=== PATIENT | female | born 1965 | race American Indian/Alaskan Native ===

== ENCOUNTER 2021-02-24 23:54 | Emergency (ER) | payer SELFPAY ==
[2021-02-25] MEDS ORDERED: ASPIRIN 325 MG TAB PO ONE (00:10)
--- NOTE | 2021-02-25 00:50 | XRay Report ---
CHEST PA AND LATERAL VIEWS INDICATION: CHEST PAIN. COMPARISON: None. FINDINGS: Support devices: None. Heart: Within normal limits. Lungs/Pleura: There are somewhat diffuse bilateral airspace opacities with sparing of the apices. No effusion or pneumothorax. IMPRESSION: 1. Nonspecific mild diffuse bilateral pulmonary opacities. Signer Name: Jeremiah Espinoza MD Signed: 02/25/2021 12:45 AM Workstation Name: [id number]
[2021-02-25 01:05] LABS: Basophils # (Auto) 0.1 K/mm3 (0.0-0.1); Basophils % (Auto) 0.4 % (0.0-1.8); Eosinophils # (Auto) 0.1 K/mm3 (0.0-0.4); Eosinophils % (Auto) 0.6 % (0.0-4.3); Hematocrit 49.6 % (30.3-42.9); Hemoglobin 16.3 gm/dl (10.1-14.3); Lymphocytes # (Auto) 1.9 K/mm3 (1.2-5.4); Lymphocytes % (Auto) 14.3 % (13.4-35.0); Mean Corpuscular HGB Conc 33 % (30-34); Mean Corpuscular Volume 99 fl (79-97); Monocytes # (Auto) 1.3 K/mm3 (0.0-0.8); Monocytes % (Auto) 9.7 % (0.0-7.3); Red Cell Distribution Width 13.7 % (13.2-15.2)
[2021-02-25 01:14] LABS: Platelet Count 138 K/mm3 (140-440)
[2021-02-25 01:30] LABS: Alanine Aminotransferase 13 units/L (7-56); Albumin 4.5 g/dL (3.9-5); BUN/Creatinine Ratio 10; Blood Urea Nitrogen 8 mg/dL (7-17); Calcium 9.2 mg/dL (8.4-10.2); Hemolysis Index 11
[2021-02-25] MEDS ORDERED: ASPIRIN 81 MG TAB CHEW PO ONE (10:05)
--- NOTE | 2021-02-25 10:16 | Emergency Department Report ---
ED Chest Pain HPI - General Chief Complaint: Chest Pain Stated Complaint: CHEST PAIN LEIGH ANN Time Seen by Provider: 02/25/21 09:58 Source: patient, EMS Mode of arrival: Wheelchair Limitations: No Limitations - History of Present Illness Initial Comments: This is a 55-year-old -[place] female who presents to the emergency department with a complaint of a 4 to 5-day history of some intermittent left- sided chest pains and intermittent shortness of breath. The patient, along with her family, travel down to [place] for vacation and stayed in an air B&B. She says that there were stairs there and one of the days she felt shortness of breath while climbing the stairs and developed this left-sided chest pain. It went away while she was on vacation but the symptoms returned again last night when she was climbing the stairs to get to her apartment. She denies any fever, lower extremity swelling, nausea, vomiting, back pain or diaphoresis. At this time the chest discomfort is 4 out of 10 in intensity. No alleviating factors. She has not taken anything for symptoms prior to presentation. She denies any tobacco or illicit drug use. No family history of early heart attack in her nuclear family. She has a past medical history of hypertension. - Related Data Previous Rx's Medication Instructions Recorded Last Taken Type Furosemide [Lasix] 20 mg PO QDAY #2 tablet 02/25/21 Unknown Rx Allergies Allergy/AdvReac Type Severity Reaction Status Date / Time No Known Allergies Allergy Unverified 02/25/21 00:07 Heart Score - HEART Score History: Slightly suspicious EKG: Non-specific Age: 45-65 Risk factors: 1-2 risk factors Troponin: < normal limit HEART Score: 3 - EKG Read Time Time EKG Completed: 00:19 EKG Read Time: 00:23 - Critical Actions Critical Actions: 0-3 pts:0.9-1.7%risk of adverse cardiac event.Candidate for discharge ED Review of Systems ROS: Stated complaint: CHEST PAIN LEIGH ANN Other details as noted in HPI Comment: All other systems reviewed and negative Constitutional: denies: chills, fever Eyes: denies: eye pain, vision change ENT: denies: ear pain, throat pain Respiratory: SOB with exertion. denies: cough Cardiovascular: chest pain. denies: edema Gastrointestinal: denies: abdominal pain, vomiting Genitourinary: denies: dysuria, discharge Musculoskeletal: denies: back pain, arthralgia Skin: denies: rash, lesions Neurological: denies: headache, weakness ED Past Medical Hx - Past Medical History Previous Medical History?: Yes Hx Hypertension: Yes - Surgical History Past Surgical History?: No - Medications Home Medications: Home Medications Medication Instructions Recorded Confirmed Last Taken Type Furosemide [Lasix] 20 mg PO QDAY #2 tablet 02/25/21 Unknown Rx ED Physical Exam - General Limitations: No Limitations - Other Other exam information: GENERAL: The patient is well-developed well-nourished. HENT: Normocephalic. Atraumatic. Patient has moist mucous membranes. EYES: Extraocular motions are intact. NECK: Supple. Trachea is midline. CHEST/LUNGS: Slightly coarse breath sounds. No tachypnea or accessory muscle use. There is no respiratory distress noted. HEART/CARDIOVASCULAR: Regular. There is no tachycardia. ABDOMEN: Abdomen is soft, nontender. Patient has normal bowel sounds. There is no abdominal distention. SKIN: Skin is warm and dry. NEURO: The patient is awake, alert, and oriented. The patient is cooperative. The patient has no focal neurologic deficits. Normal speech. MUSCULOSKELETAL: There is no tenderness or deformity. There is no limitation range of motion. ED Course Vital Signs 02/25/21 02/25/21 02/25/21 00:07 09:30 09:46 Temperature 98.0 F Pulse Rate 102 H 75 77 Respiratory 17 19 16 Rate Blood Pressure 159/98 143/92 136/91 Blood Pressure [Left] O2 Sat by Pulse 93 97 95 Oximetry 02/25/21 02/25/21 02/25/21 10:00 10:15 10:16 Temperature Pulse Rate 96 H 84 Respiratory 15 18 24 Rate Blood Pressure 136/91 152/113 Blood Pressure [Left] O2 Sat by Pulse 96 94 97 Oximetry 02/25/21 02/25/21 02/25/21 10:30 10:46 11:00 Temperature Pulse Rate 75 88 89 Respiratory 16 21 22 Rate Blood Pressure 152/113 132/86 132/86 Blood Pressure [Left] O2 Sat by Pulse 94 97 98 Oximetry 02/25/21 02/25/21 02/25/21 11:15 11:30 11:46 Temperature Pulse Rate 78 81 68 Respiratory 18 19 16 Rate Blood Pressure 146/106 146/106 138/96 Blood Pressure [Left] O2 Sat by Pulse 99 97 96 Oximetry 02/25/21 02/25/21 02/25/21 12:00 12:26 12:46 Temperature Pulse Rate 86 84 88 Respiratory 22 21 17 Rate Blood Pressure 146/106 159/96 159/96 Blood Pressure [Left] O2 Sat by Pulse 98 81 L 100 Oximetry 02/25/21 02/25/21 02/25/21 13:00 13:28 13:30 Temperature Pulse Rate 87 96 H 102 H Respiratory 21 20 19 Rate Blood Pressure 139/95 151/100 151/100 Blood Pressure [Left] O2 Sat by Pulse 100 100 100 Oximetry 02/25/21 02/25/21 02/25/21 13:46 14:30 14:46 Temperature Pulse Rate 93 H 85 89 Respiratory 18 21 19 Rate Blood Pressure 151/100 153/103 153/103 Blood Pressure [Left] O2 Sat by Pulse 100 97 96 Oximetry 02/25/21 15:00 Temperature Pulse Rate 88 Respiratory 18 Rate Blood Pressure Blood Pressure 150/100 [Left] O2 Sat by Pulse 100 Oximetry SRINIVAS score - Srinivas Score Age > 65: (0) No Aspirin use within the Past 7 Days: (0) No 3 or more CAD Risk Factors: (0) No 2 or more Angina events in past 24 hrs: (1) Yes Known CAD with more than 50% Stenosis: (0) No Elevated Cardiac Markers: (0) No ST Deviation Greater than 0.5mm: (1) Yes SRINIVAS Score: 2 ED Medical Decision Making - Lab Data Result diagrams: 02/25/21 00:31 02/25/21 00:31 Lab Results 02/25/21 02/25/21 02/25/21 Range/Units 00:31 00:31 04:17 WBC 13.3 H (4.5-11.0) K/mm3 RBC 5.00 (3.65-5.03) M/mm3 Hgb 16.3 H (10.1-14.3) gm/dl Hct 49.6 H (30.3-42.9) % MCV 99 H (79-97) fl MCH 33 H (28-32) pg MCHC 33 (30-34) % RDW 13.7 (13.2-15.2) % Plt Count 138 L (140-440) K/mm3 Lymph % (Auto) 14.3 (13.4-35.0) % [place] % (Auto) 9.7 H (0.0-7.3) % Eos % (Auto) 0.6 (0.0-4.3) % Baso % (Auto) 0.4 (0.0-1.8) % Lymph # (Auto) 1.9 (1.2-5.4) K/mm3 [place] # (Auto) 1.3 H (0.0-0.8) K/mm3 Eos # (Auto) 0.1 (0.0-0.4) K/mm3 Baso # (Auto) 0.1 (0.0-0.1) K/mm3 Seg Neutrophils % 75.0 H (40.0-70.0) % Seg Neutrophils # 10.0 H (1.8-7.7) K/mm3 D-Dimer (0-234) ng/mlDDU Sodium 140 (137-145) mmol/L Potassium 3.5 L (3.6-5.0) mmol/L Chloride 101.2 (98-107) mmol/L Carbon Dioxide 24 (22-30) mmol/L Anion Gap 18 mmol/L BUN 8 (7-17) mg/dL Creatinine 0.8 (0.6-1.2) mg/dL Estimated GFR > 60 ml/min BUN/Creatinine Ratio 10 % Glucose 96 (65-100) mg/dL Calcium 9.2 (8.4-10.2) mg/dL Total Bilirubin 0.60 (0.1-1.2) mg/dL AST 16 (5-40) units/L ALT 13 (7-56) units/L Alkaline Phosphatase 112 (35-129) units/L Troponin T < 0.010 < 0.010 (0.00-0.029) ng/mL NT-Pro-B Natriuret Pep (0-900) pg/mL Total Protein 7.9 (6.3-8.2) g/dL Albumin 4.5 (3.9-5) g/dL Albumin/Globulin Ratio 1.3 % 02/25/21 02/25/21 02/25/21 Range/Units 06:51 10:41 10:41 WBC (4.5-11.0) K/mm3 RBC (3.65-5.03) M/mm3 Hgb (10.1-14.3) gm/dl Hct (30.3-42.9) % MCV (79-97) fl MCH (28-32) pg MCHC (30-34) % RDW (13.2-15.2) % Plt Count (140-440) K/mm3 Lymph % (Auto) (13.4-35.0) % [place] % (Auto) (0.0-7.3) % Eos % (Auto) (0.0-4.3) % Baso % (Auto) (0.0-1.8) % Lymph # (Auto) (1.2-5.4) K/mm3 [place] # (Auto) (0.0-0.8) K/mm3 Eos # (Auto) (0.0-0.4) K/mm3 Baso # (Auto) (0.0-0.1) K/mm3 Seg Neutrophils % (40.0-70.0) % Seg Neutrophils # (1.8-7.7) K/mm3 D-Dimer 1320.30 H (0-234) ng/mlDDU Sodium (137-145) mmol/L Potassium (3.6-5.0) mmol/L Chloride (98-107) mmol/L Carbon Dioxide (22-30) mmol/L Anion Gap mmol/L BUN (7-17) mg/dL Creatinine (0.6-1.2) mg/dL Estimated GFR ml/min BUN/Creatinine Ratio % Glucose (65-100) mg/dL Calcium (8.4-10.2) mg/dL Total Bilirubin (0.1-1.2) mg/dL AST (5-40) units/L ALT (7-56) units/L Alkaline Phosphatase (35-129) units/L Troponin T < 0.010 (0.00-0.029) ng/mL NT-Pro-B Natriuret Pep 1452 H (0-900) pg/mL Total Protein (6.3-8.2) g/dL Albumin (3.9-5) g/dL Albumin/Globulin Ratio % - EKG Data -: EKG Interpreted by Pa EKG shows normal: sinus rhythm, axis, intervals, QRS complexes (LVH), ST-T waves (Early repolarization to the anteroseptal leads) Rate: tachycardia (101 bpm) - EKG Data When compared to previous EKG there are: previous EKG unavailable Interpretation: other (Sinus rhythm at 101 bpm, normal axis, normal intervals, LVH, early repolarization. No ST elevation PR) - Radiology Data Radiology results: report reviewed, image reviewed interpreted by me: Chest x-ray shows some pulmonary vascular congestion. No obvious pneumonia. No pneumothorax. CTA CHEST WITH CONTRAST INDICATION : Chest pain, elevated d-dimer. TECHNIQUE: Axial imaging performed through the chest, with contrast bolus timing set to maximize opacification of the pulmonary arteries. Sagittal and coronal reformatted images. 3-plane MIP reformatted images were obtained. All CT scans at this location are performed using CT dose reduction for ALARA by means of automated exposure control. 100 mL of intravenous contrast administered. COMPARISON: None FINDINGS: Bolus: Contrast bolus timing is adequate. PTE: No filling defect is present to suggest PTE. Mediastinum: Mild cardiomegaly is evident. No pericardial abnormality. The remaining mediastinal contents are unremarkable. No pathologic mediastinal adenopathy. Lungs: Mild congestive changes are identified in the lower lung zones. Trace right pleural effusion. Bibasilar opacities are identified, right greater than left, which are most consistent with atelectatic changes. No pneumothorax. Bones: Degenerative changes in the spine with nothing acute. Upper abdomen: Limited imaging of the upper abdomen shows nothing acute. IMPRESSION: No evidence for pulmonary embolus. Findings consistent with mild CHF. - Medical Decision Making This patient presents to the emergency department with a complaint of some intermittent episodes of left-sided chest pains and shortness of breath with exertion. Initially, at the time of my examination, the patient had mild to moderate chest discomfort but no current shortness of breath. EKG did not have any morphology consistent with ST elevation myocardial infarction. Chest x-ray showed some pulmonary vascular congestion. The patient had blood work prior to my shift starting that looked mostly unremarkable including CBC, metabolic panel and negative troponins x3. However, given the patient's complaint of the chest discomfort, recent travel to [place], and shortness of breath with exertion, I wanted to evaluate her for pulmonary embolism and CHF. The BNP came back at about 1450, and the D-dimer level came back at greater than 1300. A CT angiography of the chest was completed that did not show any pu lmonary embolism and showed evidence of mild CHF. The patient was given a dose of Lasix for diuresis. The potassium was 3.5 so she was given a dose of potassium chloride so that she can have a few doses of Lasix without causing severe hypokalemia. The patient is low on the heart and SRINIVAS score. Just prior to discharge the patient says that she is chest pain-free. She was seen ambulatory around the emergency department without any oxygen and remained at 97% while ambulating, and at 100% on room air while at rest. For all these reasons the patient appears safe for discharge home at this time. Her contact information has been sent over to the [facility] [place], and someone from their office should be contacting her shortly for close outpatient follow-up as per our [facility] low risk chest pain protocol. She will return to the emergency department with any worsening of her symptoms or with any acute distress. Critical Care Time: No Critical care attestation.: If time is entered above; I have spent that time in minutes in the direct care of this critically ill patient, excluding procedure time. ED Disposition Clinical Impression: CHF (congestive heart failure) Qualifiers: Heart failure type: unspecified Heart failure chronicity: acute Qualified Code(s): I50.9 - Heart failure, unspecified Chest pain Qualifiers: Chest pain type: unspecified Qualified Code(s): R07.9 - Chest pain, unspecified Disposition: DC-01 TO HOME OR SELFCARE Is pt being admited?: No Condition: Stable Instructions: Nonspecific Chest Pain, Adult, Heart Failure, Diagnosis Additional Instructions: Please follow-up with a primary care physician in the next few days. I am sending your contact information over to the [facility] [place], and someone from their office should be contacting you shortly for close outpatient follow-up. Just in case, I am giving you a referral for one of their aeronautical products sales engineer, Dr. Buck. Return to the emergency department with any worsening of your symptoms, new or concerning symptoms not addressed during this current emergency department visit, or with any acute distress. Prescriptions: Furosemide [Lasix] 20 mg PO QDAY #2 tablet Referrals: PRIMARY CAREMD [Primary Care Provider] - 3-5 Days KAREN BUCK MD [Staff Physician] - 3-5 Days Time of Disposition: 15:22
[2021-02-25] MEDS ORDERED: FUROSEMIDE 20 MG/2 ML INJ IV ONE (12:18)
--- NOTE | 2021-02-25 13:59 | Cat Scan Report ---
CTA CHEST WITH CONTRAST INDICATION : Chest pain, elevated d-dimer. TECHNIQUE: Axial imaging performed through the chest, with contrast bolus timing set to maximize opa cification of the pulmonary arteries. Sagittal and coronal reformatted images. 3-plane MIP reformatte d images were obtained. All CT scans at this location are performed using CT dose reduction for ALAR A by means of automated exposure control. 100 mL of intravenous contrast administered. COMPARISON: None FINDINGS: Bolus: Contrast bolus timing is adequate. PTE: No filling defect is present to suggest PTE. Mediastinum: Mild cardiomegaly is evident. No pericardial abnormality. The remaining mediastinal con tents are unremarkable. No pathologic mediastinal adenopathy. Lungs: Mild congestive changes are identified in the lower lung zones. Trace right pleural effusion. Bibasilar opacities are identified, right greater than left, which are most consistent with atelecta tic changes. No pneumothorax. Bones: Degenerative changes in the spine with nothing acute. Upper abdomen: Limited imaging of the upper abdomen shows nothing acute. IMPRESSION: No evidence for pulmonary embolus. Findings consistent with mild CHF. Signer Name: Dajuan Donaldson Jr, MD Signed: 02/25/2021 1:55 PM Workstation Name: [id number]
[2021-02-25] MEDS ORDERED: POTASSIUM CHLORIDE ER 20 MEQ TAB PO ONE (15:20)
--- NOTE | 2021-02-25 17:13 | Electrocardiograph Report ---
[facility] Test Date: 2021-02-25 Test Time: 00:19:48 Pat Name: JULIÁN STRICKLAND Department: Room: Gender: F Mixing Machine Operator: NURSE : 1965 Requested By: ED DOC Order Number: [id number] Reading MD: Mahnaz May Measurements Intervals [place] Rate: 101 P: 48 AL: 167 QRS: 37 QRSD: 91 T: 71 QT: 357 QTc: 462 Interpretive Statements Sinus tachycardia Biatrial enlargement Left ventricular hypertrophy ST depression, consider lateral ischemia No previous ECG available for comparison Electronically Signed On 02-25-2021 17:13:42 EDT by Mahnaz May
[2021-02-25 17:26] VITALS: BP 150/100
== END 2021-02-25 15:30 | disposition home or self-care (01) ==
LOC: ED 23:54
DX: I11.0 Hypertensive heart disease with heart failure (principal); I50.9 Heart failure, unspecified; R07.89 Other chest pain; I10 Essential (primary) hypertension; Z79.899 Other long term (current) drug therapy
CPT/HCPCS: 36415; 71046; 71275; 80053; 83880; 84484; 85025; 85379; 93005; 96374; 99285; J1940; Q9967

== ENCOUNTER 2021-10-27 07:27 | Day surgery (SDC) | payer OTHER ==
[2021-10-27] MEDS: SODIUM CHLORIDE 0.9% 500 ML 500 ML IV SCH ×2 (09:13→10:02)
[2021-10-27] MEDS ORDERED: HEPARIN/NS 5000 UNIT/500ML 1,000 ML IR ONE (09:35)
[2021-10-27] MEDS ORDERED: NITROGLYCERIN SYRINGE 3 ML ONE (09:42)
[2021-10-27] MEDS: fentaNYL 100 MCG/2 ML INJ ONE ×2 (09:57→10:15)
[2021-10-27] MEDS: MIDAZOLAM 2 MG/2 ML INJ ONE ×2 (09:57→10:15)
[2021-10-27] MEDS: LIDOCAINE (2%) 20 MG/1 ML VIAL 20 ML MDV INFILTRATI ONE ×2 (09:58→10:16)
[2021-10-27] MEDS: HEPARIN 10,000 UNITS/10 ML VIAL ONE ×2 (09:58→10:19)
[2021-10-27] MEDS ORDERED: ASPIRIN 81 MG TAB CHEW PO SCH (10:00)
[2021-10-27] MEDS: VERAPAMIL 5 MG/2 ML INJ ONE ×2 (10:01→10:19)
--- NOTE | 2021-10-27 10:40 | Short Stay Summary ---
Short Stay Documentation Date of service: 10/27/21 - History H&P: obtained from office - Allergies and Medications Current Medications: Allergies No Known Allergies Allergy (Unverified 02/25/21 00:07) Home Medications Medication Instructions Recorded Confirmed Last Taken Type Furosemide [Lasix] 20 mg PO QDAY #2 tablet 02/25/21 10/27/21 10/26/21 Rx 20 MG Aspirin EC [Halfprin EC] 81 mg PO QDAY 10/27/21 10/27/21 10/27/21 History 81 MG Losartan [Cozaar] 25 mg PO QDAY 10/27/21 10/27/21 10/26/21 History 25 MG Potassium Chloride [K-Dur] 10 meq PO QDAY 10/27/21 10/27/21 10/26/21 History 10 MEQ carvediloL [Coreg] 6.25 mg PO BID 10/27/21 10/27/21 10/26/21 History 2 TABS Active Medications Aspirin (Aspirin 81 Mg Tab Chew) 81 mg PO QDAY JEFERSON Stop: 10/27/21 17:00 Last Admin: 10/27/21 09:13 Dose: 81 mg Documented by: Sodium Chloride (Nacl 0.9% 500 Ml) 500 mls @ 50 mls/hr IV DIRECT JEFERSON Stop: 10/27/21 18:59 Last Admin: 10/27/21 10:02 Dose: 50 mls/hr Documented by: - Physical exam HEENT: Other (dressing clean,dry, and intact. No bleeding or hematoma) - Brief post op/procedure progress note Date of procedure: 10/27/21 Pre-op diagnosis: abnormal stress test Post-op diagnosis: other (cardiomyopathy) Anesthesia: local Estimated blood loss: minimal - Hospital course Hospital course: Patient underwent cardiac cath with no complications. Patient tolerated procedure well - Disposition Condition at discharge: Good Disposition: 01 HOME / SELF CARE / HOMELESS Short Stay Discharge Plan Activity: advance as tolerated Diet: low fat, low salt Wound: keep clean and dry, per your surgeon's advice Follow up with: DIAZ COLÓN MD [Primary Care Provider] - 7 Days KAREN GILBERT MD [Staff Physician] - 12/12/21 1:30 pm (Patient has a follow up appointment with on 12/12/2021 at 1:30pm at our [place] location. )
--- NOTE | 2021-10-27 10:41 | Electrocardiograph Report ---
[facility] Test Date: 2021-10-27 Test Time: 08:23:41 Pat Name: JULIÁN STRICKLAND Department: Room: Gender: F Reel Man: MAXIMO : 1965 Requested By: LIZANDRO BUCK Order Number: [id number] Reading MD: Lizandro Buck Measurements Intervals [place] Rate: 81 P: 41 MS: 175 QRS: 38 QRSD: 86 T: 48 QT: 384 QTc: 445 Interpretive Statements Sinus rhythm Probable left atrial enlargement Probable left ventricular hypertrophy Compared to ECG 02/25/2021 00:19:48 Sinus tachycardia no longer present Electronically Signed On 10-27-2021 10:40:53 EST by Lizandro Buck
--- NOTE | 2021-10-27 11:08 | Cardiac Catherization Report ---
DATE OF SERVICE: 10/27/2021 LEFT HEART CATHETERIZATION CLINICAL INFORMATION: This is a 56-year-old patient with cardiomyopathy who is here for left heart cath ischemic evaluation. The patient did have moderate sedation started at 10:15 and finished at 10:25 10 minutes of moderate sedation. DESCRIPTION OF PROCEDURE: Procedure was done via the right radial artery, sterile technique and local anesthesia. A 6-Bangladeshi radial sheath inserted. Left system with JL3.5 catheter. Left main is large and long and patent, trifurcates into a large LAD that is patent with moderate tortuosity. Diagonal 1 is a medium caliber vessels patent. Circumflex and AV groove is a medium to large caliber vessel is patent. Ramus is a medium caliber vessel is patent. High OM1 is a medium caliber vessel is patent. Distally is moderate severe tortuosity. RCA engaged with JR4 dominant vessel, medium to large caliber with moderate tortuous, patent. LV gram done in ALIS and JOHNSON shows borderline normal LV function, EF %. LVEDP 11 mmHg, LV is 129. Aortic is 129/76. No gradient across the aortic valve on pullback. A 5-Bangladeshi catheters all taken over guidewire. A 6-Bangladeshi radial sheath was discontinued. Radial dressing applied. No hematoma, no bleeding. SUMMARY: Left main patent, LAD patent, diagonal 1 patent, circumflex patent, OM1 patent, ramus patent, RCA patent. Moderate severe tortuosity and distal vessel with borderline normal LV function, EF approximately 50% with normal left end diastolic pressure. TID: [id number] RECEIPT: [id number] SHAINA
[2021-10-27 14:26] VITALS: BP 143/98
== END 2021-10-27 07:28 | disposition home or self-care (01) ==
LOC: CATHLABREC 07:27
PROVIDERS: ATTEND Internal Medicine
DX: R94.39 Abnormal result of other cardiovascular function study (principal); I42.0 Dilated cardiomyopathy; R07.89 Other chest pain; I11.0 Hypertensive heart disease with heart failure; I50.22 Chronic systolic (congestive) heart failure; I34.0 Nonrheumatic mitral (valve) insufficiency; D64.9 Anemia, unspecified; Z79.899 Other long term (current) drug therapy; Z79.82 Long term (current) use of aspirin; Z98.51 Tubal ligation status; Z98.890 Other specified postprocedural states; Z82.49 Family history of ischemic heart disease and other diseases of the circulatory system
CPT/HCPCS: 93005; 93458; 99156; C1894; J1644; J1815; J2250; J3010; J3490; J7040; Q9967